=== PATIENT | female | born 1945 | race Caucasian/White ===

== ENCOUNTER 2018-12-22 10:16 | Emergency (ER) | payer BC, MEDICARE ==
--- OUTSIDE RECORDS SUMMARY | 2018-12-22 10:25 | XMS REPORT | Continuity of Care Document ---
:1945 Author Organization [facility] Care Team Providers Name Role Phone FELISA CARLOS Admitting Physician FELISA CARLOS Attending Physician Allergies and Intolerances Code Code Allergy Type Reaction Severity Start End Status System Substance Date Date 4137308 RXNorm Latex Allergy to rash Moderate 02/07/20 Active substance 16 (disorder) 093461 RXNorm Vicodin Propensity to shrt of Moderate 02/07/20 Active adverse breath 16 reactions to drug (disorder) Medications RxNorm Medication Dose Route Instructions Start End Date Status Date Acetaminophen 1000 mg oral orally every 6 Active hours as needed. [id number] Acyclovir 400 MG 400 mg oral orally 4 times per Active Oral Tablet day 20021015 cefdinir 300 MG Oral 300 mg oral orally every 12 Active Capsule hours (10 days) 903876 Cholecalciferol 400 1 cap oral orally 3 times per Active UNT / Vitamin A 700 day (administer UNT Oral Capsule with food (meal or snack)) 761981 Diclofenac Potassium 50 mg oral orally 2 times per Active 50 MG Oral Tablet day ( administer with food or milk) 054521 Meclizine 50 mg oral orally 2 times per Active Hydrochloride 50 MG day as needed. (10 Oral Tablet days) 7646 Omeprazole 20 mg oral orally every day ( Active swallow whole (do not chew/crush/cut) OR open capsule, sprinkle contents over tablespoonful applesauce; swallow all immediately/do not chew pellets) 9447682 Raloxifene 60 mg oral orally every day Active Hydrochloride 60 MG Oral Tablet Vitamin E Oral 400 unit oral orally every day Active Problems Code Code System Problem Name Start Date End Date Status 570426805 SNOMED-CT Gastroesophageal reflux disease U Active 7345129 SNOMED-CT Arthritis U Active Procedures No data in the system Results Radiology Results Order: US-DOPPLER EXT VEIN RIGHTExam Completion Date:12/07/2018 07: 1:53 PM RIGHT EXTREMITY VENOUS ULTRASOUND CLINICAL INFORMATION: -- Pain in lowerlimb COMPARISON: None. TECHNIQUE: Examination of right lower extremity using porras scale, spectral and color Doppler Ultrasound. FINDINGS: Common Femoral Vein: Patent color flow and compression. Superficial Femoral Vein: Patent color flow and compression. Profunda Femoral Vein: Patent color flow and compression. Popliteal Vein: Patent color flow and compression. Greater Saphenous Vein: Patent color flow and compression. Calf Veins: Visualized calf veins demonstrate patentcolor flow and compression. Augmentation: Response to augmentation demonstrates normal spectral Doppler waveforms. Urena's Cyst: None. Miscellaneous: None. IMPRESSION: No deep vein thrombosis in the visualized right lower extremity veins. END OF IMPRESSION [facility] submits Radiology results to [facility] and [facility] then provides those same results to [facility]. All results are available to [facility] and [facility] provider portal users. [facility] DICOM images are available to the [facility] provider portal users only. [facility] DICOM images are not available to the [facility] provider portal users. There is no current [facility] cross-[facility] functionality allowing images to be available through the [facility] to [facility] connectivity. Electronically signed By: Gautam Duarte M.D. Read By: GAUTAM DUARTE Date: 2018 17:06 Social History Code Code System Social History Observation Description Dates Observed [id number] [facility] Current Smoking Status Never smoker UNK AdministrativeGender Sex Assigned At Unknown Vital Signs No data in the system Goals Section No data in the system Health Concerns No data in the systemEncounter Diagnosis Date Code Code System Diagnosis Status M79.661 ICD10 PAIN IN RIGHT LOWER LEG Active Advance Directives *RHIO - CONSENT IS YES Directive Type Effective Date [employer] Notes Supporting Document Name Address Phone No Directive Type 01/18/2017 1:32:19 Not Specified Not Specified Not Specified None No specified [facility] [employer] Directive Type Effective Date [employer] Notes Supporting Document Name Address Phone No Directive 01/18/2017 Not Specified Not Specified Not Specified [place] leung No Type specified 9:55:00 AM spouse [phone] Family History Relationship: Mother Health Problem Age At Onset Notes Breast cancer (Carcinoma of breast) 82 Years Relationship: Sister Health Problem Age At Onset Notes Ovarian cancer (Malignant tumor of ovary) Functional Status No data in the system Immunizations No data in the system Medical Equipment No data in the system Mental Status No data in the system Assessment and Plan Assessments No data in the systemPlan Of Treatment No data in the systemPending Tests No data in the system Hospital Discharge Instructions No data in the system Reason for Visit Reason for Visit US
[2018-12-22 10:26] VITALS: BP 144/74
--- NOTE | 2018-12-22 10:34 | UC ---
Ear Complaint HPI - HPI Summary HPI Summary: 73 yo female presents with possible FB in her left ear. She tells me that this morning she was using q-tips in her ears and when she removed it from her left ear, there was no tip. She could not find it on the floor and assumes it is in her ear - prompting her visit to . She has no pain or decreased hearing. - History of Current Complaint Chief Complaint: UCEar Stated Complaint: FB IN EAR Time Seen by Provider: 12/22/18 10:33 Hx Obtained From: Patient Onset/Duration: Sudden Onset Pain Intensity: 0 - Allergies/Home Medications Allergies/Adverse Reactions: Allergies Allergy/AdvReac Type Severity Reaction Status Date / Time acetaminophen [From Vicodin] Allergy Shortness Verified 12/22/18 10:26 of Breath hydrocodone [From Vicodin] Allergy Shortness Verified 12/22/18 10:26 of Breath latex Allergy Rash Verified 12/22/18 10:26 Home Medications: Home Medications Acyclovir* [Zovirax 200 MG CAP*] 1 tab PO DAILY 12/22/18 [History Confirmed ] Aspirin 325 MG TAB* 1 tab PO DAILY 12/22/18 [History Confirmed 12/22/18] Atorvastatin* 20 mg PO DAILY 12/22/18 [History Confirmed 12/22/18] Diclofenac Sodium % .ROUTE 12/22/18 [History] Metoprolol Tartrate TAB* [Lopressor TAB*] 1 tab PO DAILY 12/22/18 [History Confirmed 12/22/18] Omeprazole 20 mg PO DAILY 12/22/18 [History Confirmed 12/22/18] PMH/Surg Hx/FS Hx/Imm Hx Endocrine History: Dyslipidemia Cardiovascular History: Hypertension GI/ History: Gastroesophageal Reflux - Surgical History Surgical History: None - Family History Known Family History: Positive: Cardiac Disease, Hypertension - Social History Occupation: Retired Lives: With Family Alcohol Use: Occasionally Substance Use Type: None Smoking Status (MU): Never Smoked Tobacco Review of Systems All Other Systems Reviewed And Are Negative: Yes Constitutional: Positive: Negative Skin: Positive: Negative Eyes: Positive: Negative ENT: Positive: Other - ?FB in left ear Respiratory: Positive: Negative Cardiovascular: Positive: Negative Neurological: Positive: Negative Psychological: Positive: Negative Physical Exam - Summary Physical Exam Summary: GENERAL: NAD. WDWN. No pain distress. SKIN: No rashes, sores, lesions, or open wounds. HEENT: Head: AT/NC Ears: Hearing grossly normal. TMs intact, no bulging, erythema, or edema. No FB in left or right ear. CHEST: No accessory muscle use. Breathing comfortably and in no distress. CV: Pulses intact. Cap refill <2seconds NEURO: Alert. PSYCH: Age appropriate behavior. Triage Information Reviewed: Yes Vital Signs: Initial Vital Signs Temp 98 F 12/22/18 10:23 Pulse 79 12/22/18 10:23 Resp 17 12/22/18 10:23 BP 144/74 12/22/18 10:23 Pulse Ox 99 12/22/18 10:23 Vital Signs Reviewed: Yes Ear Complaint Course/Dx - Course Course Of Treatment: There was no FB in pt's ears. Advised to refrain from using q-tips in her ears. - Differential Dx/Diagnosis Provider Diagnosis: Foreign body sensation in left ear canal Discharge - Sign-Out/Discharge Documenting (check all that apply): Patient Departure All imaging exams completed and their final reports reviewed: No Studies - Discharge Plan Condition: Stable Disposition: HOME Referrals: Nina Mayfield MD [Primary Care Provider] - Additional Instructions: Your ear appears normal and healthy. There is no foreign body in either of your ears. - Billing Disposition and Condition Condition: STABLE Disposition: Home
== END 2018-12-22 10:40 | disposition home or self-care (01) ==
LOC: UCEAST 10:16
DX: H93.8X2 Other specified disorders of left ear (principal); I10 Essential (primary) hypertension; K21.9 Gastro-esophageal reflux disease without esophagitis; E78.5 Hyperlipidemia, unspecified
CPT/HCPCS: 99201; G0463